=== PATIENT | female | born 1950 | race Asian ===

== ENCOUNTER 2023-07-03 06:07 | Inpatient (IN) | payer BC ==
[~2023-07-03] VITALS: Ht 157.5 cm; Wt 45.8 kg
[2023-07-03] MEDS ORDERED: CEFAZOLIN SOD 2 GM in D5W 50 ML IV ONE (07:00)
[2023-07-03] MEDS ORDERED: AMOX500T2 (07:09)
[2023-07-03] MEDS ORDERED: METO-540 (07:09)
[2023-07-03] MEDS ORDERED: ASPI-1155 PO (07:09)
[2023-07-03] MEDS ORDERED: SYN50 PO (07:09)
[2023-07-03] MEDS ORDERED: LIP20 PO (07:09)
[2023-07-03] MEDS ORDERED: DEXAMETHASONE SOD PHOSPHATE 4 MG/ML VIAL ONE (07:35)
[2023-07-03] MEDS ORDERED: PROPOFOL 200MG/ 20ML VIAL (DIPRIVAN) IV ONE (07:35)
[2023-07-03] MEDS ORDERED: LIDOCAINE 2%, 20 ML MDV ONE (07:35)
[2023-07-03] MEDS ORDERED: fentaNYL CITRATE/PF 100 MCG/2 ML AMP ONE (07:35)
[2023-07-03] MEDS ORDERED: MIDAZOLAM HCL/PF 2 MG/2 ML SYRINGE ONE (07:35)
[2023-07-03] MEDS ORDERED: SUGAMMADEX SODIUM 200 MG/2 ML VIAL IV ONE (07:35)
[2023-07-03] MEDS ORDERED: NS 1000 ML IV.SOLN IV ONE (07:35)
[2023-07-03] MEDS ORDERED: ROCURONIUM BROMIDE 10 MG/ML (ZEMURON) ONE (07:35)
[2023-07-03] MEDS ORDERED: ISOFLURANE 15 MIN GAS INH ONE (07:35)
[2023-07-03] MEDS ORDERED: ONDANSETRON HCL 4 MG/2 ML VIAL ONE (07:35)
[2023-07-03] MEDS ORDERED: KETOROLAC TROMETHAMINE 30 MG VIAL ONE (07:35)
[2023-07-03] MEDS ORDERED: cefOXitin SODIUM 2 GM in D5W 100 ML IV ONE (08:00)
[2023-07-03] MEDS ORDERED: ACETAMINOPHEN I.V. 1000 MG 100 ML IV ONE (08:47)
[2023-07-03] MEDS ORDERED: MEPERIDINE HCL/PF 25 MG/ML DISP.SYRIN IVP PRN (09:00)
[2023-07-03] MEDS ORDERED: hydrALAZINE HCL 20 MG/ML VIAL IVP PRN (09:00)
[2023-07-03] MEDS ORDERED: METOCLOPRAMIDE HCL 10 MG/2 ML VIAL IVP PRN (09:00)
[2023-07-03] MEDS ORDERED: HYDROmorphone 1 MG/ML INJ. CARTRIDGE IVP PRN ×2 (09:00)
[2023-07-03] MEDS: LR 1,000 ML IV SCH ×2 (09:00→11:45)
[2023-07-03] MEDS ORDERED: LABETALOL 100 MG/ 20ML VIAL IVP PRN (09:00)
[2023-07-03] MEDS ORDERED: BUPIVACAINE LIPOSOME/PF 266 MG/20 ML VIAL INFIL ONE (09:36)
[2023-07-03] MEDS ORDERED: NALOXONE HCL 0.4 MG/ML AMP (NARCAN) IVP PRN ×3 (10:15)
[2023-07-03] MEDS ORDERED: D5/0.45 NS 1,000 ML IV SCH (10:15)
[2023-07-03] MEDS ORDERED: ONDANSETRON HCL 4 MG/2 ML VIAL IVP PRN (10:15)
[2023-07-03] MEDS ORDERED: HYDROcodone/ACETAMIN 5-325 MG TAB (NORCO/ VICODIN) PO PRN ×2 (10:15)
[2023-07-03] MEDS ORDERED: ACETAMINOPHEN 325 MG TABLET PO PRN (10:15)
[2023-07-03 11:29] LABS: HEMATOCRIT 43.6 % (36-48); HEMOGLOBIN 13.8 g/dL (12.0-16.0)
[2023-07-03 11:43] LABS: ANION GAP 14 (5-15); CALCIUM 8.7 mg/dL (8.4-11.0); CARBON DIOXIDE 20 mmol/L (23-29); CHLORIDE 104 mmol/L (98-107); CREATININE 1.12 mg/dL (0.55-1.30); GLUCOSE 158 mg/dL (74-106); POTASSIUM 3.8 mmol/L (3.5-5.1); SODIUM SERUM 138 mmol/L (136-145); UREA NITROGEN, BLOOD 17 mg/dL (8-21)
[2023-07-03 12:04] VITALS: BP_SYST 144; PULSE 76; RESP 16; TEMP 96.4; O2SAT 98
[2023-07-03] MEDS: HYDROmorphone 1 MG/ML INJ. CARTRIDGE IVP PRN (12:22)
[2023-07-03] MEDS: D5/0.45 NS 1,000 ML IV SCH (15:21)
[2023-07-03 18:43] VITALS: BP_SYST 114; PULSE 62; RESP 16; TEMP 97.3; O2SAT 100
[2023-07-03 19:00] VITALS: BP_SYST 116; PULSE 66; RESP 16; TEMP 97.4; O2SAT 98
[2023-07-03 20:00] VITALS: BP_SYST 116; PULSE 66; RESP 16; TEMP 97.4; O2SAT 98
[2023-07-03] MEDS: FAMOTIDINE PF 20 MG/2 ML VIAL IVP SCH (22:09)
[2023-07-03] MEDS: cefOXitin SODIUM 2 GM in D5W 100 ML IV SCH (22:09)
[2023-07-04 00:24] VITALS: BP_SYST 120; PULSE 63; RESP 13; TEMP 97.4; O2SAT 98
[2023-07-04 05:09] LABS: BASOPHILS % (AUTO) 0.1 % (0.0-2.0); HEMATOCRIT 38.6 % (36-48); HEMOGLOBIN 12.4 g/dL (12.0-16.0); LYMPHOCYTES # (AUTO) 1.2 K/uL (1.0-5.5); LYMPHOCYTES % (AUTO) 7.8 % (20.5-51.5); MEAN CORPUSCULAR HEMOGLOBIN 28 pg (27-31); MEAN CORPUSCULAR HGB CONC 32 % (32-36); MEAN CORPUSCULAR VOLUME 87 fL (79.0-98.0); MONOCYTES # (AUTO) 1.1 K/uL (0.0-1.0); MONOCYTES % (AUTO) 7.1 % (1.7-9.3); NEUTROPHILS # (AUTO) 13.2 K/uL (1.8-7.7); PLATELET COUNT (AUTO) 224 K/uL (130-430); RED BLOOD CELL COUNT(AUTO) 4.43 MIL/uL (4.2-6.2); RED CELL DISTRIBUTION WIDTH 14.1 % (9.0-15.0); WHITE BLOOD COUNT (AUTO) 15.5 K/uL (4.8-10.8)
[2023-07-04 05:33] LABS: ALANINE AMINOTRANSFERASE 22 U/L (12-78); ANION GAP 9 (5-15); ASPARTATE AMINOTRANSFERASE 27 U/L (10-37); CALCIUM 8.4 mg/dL (8.4-11.0); CARBON DIOXIDE 24 mmol/L (23-29); CHLORIDE 104 mmol/L (98-107); CREATININE 0.58 mg/dL (0.55-1.30); GLUCOSE 107 mg/dL (74-106); SODIUM SERUM 137 mmol/L (136-145); TOTAL BILIRUBIN 0.9 mg/dL (0.0-1.0); UREA NITROGEN, BLOOD 13 mg/dL (8-21)
[2023-07-04] MEDS: D5/0.45 NS 1,000 ML IV SCH ×3 (05:35→16:33)
[2023-07-04 08:14] VITALS: BP_SYST 126; PULSE 61; RESP 16; TEMP 97.8; O2SAT 98
[2023-07-04] MEDS: cefOXitin SODIUM 2 GM in D5W 100 ML IV SCH (08:46)
[2023-07-04] MEDS: FAMOTIDINE PF 20 MG/2 ML VIAL IVP SCH ×2 (08:46→22:22)
[2023-07-04] MEDS: ENOXAPARIN SODIUM 30 MG/0.3 ML SYRINGE SUBCUT SCH (08:47)
[2023-07-04] MEDS: HYDROmorphone 1 MG/ML INJ. CARTRIDGE IVP PRN (08:54)
[2023-07-04 10:00] VITALS: O2SAT 97
[2023-07-04 12:00] VITALS: BP_SYST 125; PULSE 77; RESP 20; TEMP 97.9; O2SAT 96
[2023-07-04] MEDS: METOCLOPRAMIDE HCL 10 MG/2 ML VIAL IVP SCH ×3 (13:17→23:51)
[2023-07-04 16:00] VITALS: BP_SYST 119; PULSE 76; RESP 18; TEMP 96.5; O2SAT 94
[2023-07-04 20:00] VITALS: BP_SYST 131; PULSE 85; RESP 18; TEMP 98.2; O2SAT 97
[2023-07-05] VITALS: BP_SYST 127; PULSE 79; RESP 18; TEMP 98.1; O2SAT 95
[2023-07-05] MEDS: D5/0.45 NS 1,000 ML IV SCH ×2 (03:05→17:26)
[2023-07-05 06:58] LABS: HEMATOCRIT 39.5 % (36-48); HEMOGLOBIN 12.7 g/dL (12.0-16.0); LYMPHOCYTES # (AUTO) 0.9 K/uL (1.0-5.5); MEAN CORPUSCULAR HEMOGLOBIN 28 pg (27-31); MEAN CORPUSCULAR HGB CONC 32 % (32-36); MEAN CORPUSCULAR VOLUME 87 fL (79.0-98.0); MONOCYTES # (AUTO) 0.8 K/uL (0.0-1.0); MONOCYTES % (AUTO) 5.5 % (1.7-9.3); NEUTROPHILS # (AUTO) 13.4 K/uL (1.8-7.7); NEUTROPHILS % (AUTO) 88.5 % (40.0-70.0); PLATELET COUNT (AUTO) 186 K/uL (130-430); RED BLOOD CELL COUNT(AUTO) 4.55 MIL/uL (4.2-6.2); RED CELL DISTRIBUTION WIDTH 14.3 % (9.0-15.0); WHITE BLOOD COUNT (AUTO) 15.2 K/uL (4.8-10.8)
[2023-07-05] MEDS: METOCLOPRAMIDE HCL 10 MG/2 ML VIAL IVP SCH ×3 (07:00→19:46)
[2023-07-05 07:26] LABS: ERYTHROCYTE SEDIMENTATION RATE 29 MM/HR (0-20)
[2023-07-05 07:28] LABS: ALANINE AMINOTRANSFERASE 24 U/L (12-78); ALBUMIN 2.5 g/dL (3.4-4.8); ANION GAP 9 (5-15); ASPARTATE AMINOTRANSFERASE 23 U/L (10-37); CALCIUM 8.3 mg/dL (8.4-11.0); CARBON DIOXIDE 23 mmol/L (23-29); CHLORIDE 103 mmol/L (98-107); GLUCOSE 149 mg/dL (74-106); PHOSPHORUS 1.3 mg/dL (2.7-4.5); POTASSIUM 3.4 mmol/L (3.5-5.1); SODIUM SERUM 135 mmol/L (136-145); TOTAL BILIRUBIN 0.8 mg/dL (0.0-1.0); TOTAL PROTEIN, SERUM 5.8 g/dL (6.4-8.3); UREA NITROGEN, BLOOD 5 mg/dL (8-21)
[2023-07-05 08:00] VITALS: BP_SYST 143; PULSE 78; RESP 16; TEMP 98.2; O2SAT 98
[2023-07-05] MEDS: ENOXAPARIN SODIUM 30 MG/0.3 ML SYRINGE SUBCUT SCH (09:52)
[2023-07-05] MEDS: FAMOTIDINE PF 20 MG/2 ML VIAL IVP SCH ×2 (10:50→20:46)
[2023-07-05 12:00] VITALS: BP_SYST 124; PULSE 72; RESP 18; TEMP 98.7; O2SAT 100
[2023-07-05 16:00] VITALS: BP_SYST 144; PULSE 67; RESP 18; TEMP 98.6; O2SAT 97
[2023-07-06] MEDS: METOCLOPRAMIDE HCL 10 MG/2 ML VIAL IVP SCH ×3 (00:16→11:23)
[2023-07-06 00:58] VITALS: BP_SYST 152; PULSE 97; RESP 16; TEMP 98.1; O2SAT 97
[2023-07-06] MEDS: D5/0.45 NS 1,000 ML IV SCH ×2 (06:29→13:56)
[2023-07-06 07:21] LABS: BASOPHILS % (AUTO) 0.3 % (0.0-2.0); EOSINOPHILS % (AUTO) 0.1 % (0.0-4.0); HEMATOCRIT 40.4 % (36-48); HEMOGLOBIN 13.2 g/dL (12.0-16.0); LYMPHOCYTES % (AUTO) 6.7 % (20.5-51.5); MEAN CORPUSCULAR HEMOGLOBIN 28 pg (27-31); MEAN CORPUSCULAR HGB CONC 33 % (32-36); MEAN CORPUSCULAR VOLUME 87 fL (79.0-98.0); MONOCYTES # (AUTO) 0.9 K/uL (0.0-1.0); MONOCYTES % (AUTO) 5.6 % (1.7-9.3); NEUTROPHILS # (AUTO) 13.3 K/uL (1.8-7.7); NEUTROPHILS % (AUTO) 87.3 % (40.0-70.0); PLATELET COUNT (AUTO) 203 K/uL (130-430); RED BLOOD CELL COUNT(AUTO) 4.65 MIL/uL (4.2-6.2); RED CELL DISTRIBUTION WIDTH 13.7 % (9.0-15.0); WHITE BLOOD COUNT (AUTO) 15.2 K/uL (4.8-10.8)
[2023-07-06 07:40] LABS: ANION GAP 11 (5-15); CALCIUM 8.9 mg/dL (8.4-11.0); CARBON DIOXIDE 24 mmol/L (23-29); CHLORIDE 103 mmol/L (98-107); CREATININE 0.53 mg/dL (0.55-1.30); GLUCOSE 118 mg/dL (74-106); SODIUM SERUM 138 mmol/L (136-145); UREA NITROGEN, BLOOD 3 mg/dL (8-21)
[2023-07-06 07:42] LABS: POTASSIUM 2.8 mmol/L (3.5-5.1)
[2023-07-06 08:25] VITALS: BP_SYST 155; PULSE 84; RESP 18; TEMP 98.1; O2SAT 97
[2023-07-06] MEDS: ENOXAPARIN SODIUM 30 MG/0.3 ML SYRINGE SUBCUT SCH (09:40)
[2023-07-06] MEDS: FAMOTIDINE PF 20 MG/2 ML VIAL IVP SCH (09:40)
[2023-07-06] MEDS ORDERED: NS IV ONE (09:45)
[2023-07-06] MEDS ORDERED: POTASSIUM CHLORIDE IV ONE (09:45)
[2023-07-06 11:22] VITALS: BP_SYST 148; PULSE 71; RESP 18; TEMP 98.4; O2SAT 98
[2023-07-06 16:16] VITALS: BP_SYST 149; PULSE 80; RESP 18; TEMP 99; O2SAT 98
[2023-07-06 18:41] VITALS: BP_SYST 149; PULSE 80; RESP 18; TEMP 98.9; O2SAT 98
== END 2023-07-06 19:03 | disposition home health service (06) | DRG 330 ==
LOC: SMU 06:07 → STU 11:52 → SMU 07-05 05:57
PROVIDERS: ADMIT Colon & Rectal Surgery; ATTEND Colon & Rectal Surgery
PROC: 3E0T3BZ Introduction of Anesthetic Agent into Peripheral Nerves and Plexi, Percutaneous Approach (ICD-10-PCS; 2023-07-03)
PROC: 0DTF0ZZ Resection of Right Large Intestine, Open Approach (ICD-10-PCS; principal; 2023-07-03 07:45)
DX: C18.9 Malignant neoplasm of colon, unspecified (principal); E44.0 Moderate protein-calorie malnutrition; K56.7 Ileus, unspecified; Z68.1 Body mass index [BMI] 19.9 or less, adult; K91.89 Other postprocedural complications and disorders of digestive system; K57.10 Diverticulosis of small intestine without perforation or abscess without bleeding; D64.9 Anemia, unspecified; E87.5 Hyperkalemia; D72.829 Elevated white blood cell count, unspecified; Z85.038 Personal history of other malignant neoplasm of large intestine; Y83.9 Surgical procedure, unspecified as the cause of abnormal reaction of the patient, or of later complication, without mention of misadventure at the time of the procedure
CPT/HCPCS: 36415; 80048; 80053; 83735; 84100; 84132; 85018; 85025; 85651-TC; 87081; 88307; 88309; 97110-GP; 97116-GP; 97530-GP; C1727; C9290; G0378; J0131; J0690; J0694; J1100; J1170; J1650; J1885; J2001; J2405; J2704; J2765; J3010; J3465; J3480; J3490; J7030; J7040; J7060

== ENCOUNTER 2023-10-16 06:11 | Day surgery (SDC) | payer BC ==
[~2023-10-16] VITALS: Ht 157.5 cm; Wt 46.3 kg
[~2023-10-16 06:11] MED LIST: AMOX500T2; ASPI-1155 PO; LIP20 PO; METO-540; SYN50 PO
[2023-10-16] MEDS ORDERED: CEFAZOLIN SOD 2 GM in D5W 50 ML IV ONE (07:00)
[2023-10-16] MEDS ORDERED: fentaNYL CITRATE/PF 100 MCG/2 ML AMP ONE (07:34)
[2023-10-16] MEDS ORDERED: SUCCINYLCHOLINE CHLORIDE 20 MG/ML(QUELICIN) ONE (07:34)
[2023-10-16] MEDS ORDERED: NS 250 ML BAG IV ONE (07:34)
[2023-10-16] MEDS ORDERED: GLYCOPYRROLATE 0.2 MG/ML VIAL ONE (07:34)
[2023-10-16] MEDS ORDERED: ONDANSETRON HCL 4 MG/2 ML VIAL ONE (07:34)
[2023-10-16] MEDS ORDERED: ACETAMINOPHEN I.V. 1000 MG 100 ML IV ONE (07:34)
[2023-10-16] MEDS ORDERED: NORMAL SALINE 10 ML VIAL ONE (07:34)
[2023-10-16] MEDS ORDERED: PROPOFOL 200MG/ 20ML VIAL (DIPRIVAN) IV ONE (07:34)
[2023-10-16] MEDS ORDERED: BUPIVACAINE /PF 0.25% 30 ML VIAL INJ ONE (07:34)
[2023-10-16] MEDS ORDERED: HEPARIN SODIUM, PORCINE 10,000 UNITS/ 10 ML VIAL ONE (07:34)
[2023-10-16] MEDS ORDERED: SEVOFLURANE 15 MIN GAS INH ONE (07:34)
[2023-10-16] MEDS ORDERED: ONDANSETRON HCL 4 MG/2 ML VIAL IVP PRN (08:45)
[2023-10-16] MEDS ORDERED: fentaNYL CITRATE/PF 100 MCG/2 ML AMP IVP PRN ×3 (08:45)
[2023-10-16] MEDS ORDERED: LR 1,000 ML IV ONE (08:45)
[2023-10-16] MEDS ORDERED: HYDROcodone/ACETAMIN 5-325 MG TAB (NORCO/ VICODIN) PO PRN (09:00)
[2023-10-16] MEDS ORDERED: D5/0.45 NS 1,000 ML IV SCH (09:00)
[2023-10-16 09:34] VITALS: O2SAT 100
[2023-10-16 13:17] VITALS: BP_SYST 138; PULSE 66; RESP 16
== END 2023-10-16 11:21 | disposition home or self-care (01) ==
LOC: SDS 06:11 → SMU 06:12 → SDS 11:21
PROVIDERS: ATTEND Colon & Rectal Surgery
DX: C18.9 Malignant neoplasm of colon, unspecified (principal); I10 Essential (primary) hypertension; E78.5 Hyperlipidemia, unspecified; E03.9 Hypothyroidism, unspecified; I25.10 Atherosclerotic heart disease of native coronary artery without angina pectoris; Z79.82 Long term (current) use of aspirin; Z79.899 Other long term (current) drug therapy
CPT/HCPCS: 87081; 36556; 71045; 77001; J3490 ×2; J0690; J1644; J2405; J2704; J0330; J3010; J7060; J7050; C1788; J0131; 76000